=== PATIENT | female | born 1990 | race Caucasian/White ===

== ENCOUNTER 2024-06-03 20:33 | Emergency (ER) | payer BC, SELFPAY ==
[2024-06-03 20:38] VITALS: BP 119/78
[2024-06-03 21:02] LABS: % Basophils 0.7 % (0-2); % Eosinophils 2.9 % (0-6); % Immature Granulocytes 0.3 % (0-0.5); % Lymphocytes 23.2 % (20.5-51.1); % Monocytes 10.8 % (1.7-9.3); % Neutrophils 62.1 % (42.2-75.2); Absolute Basophils 0.1 10^3/uL (0-0.2); Absolute Eosinophils 0.3 10^3/uL (0-0.7); Absolute Lymphocytes 2.1 10^3/uL (1.2-3.4); Absolute Neutrophils 5.7 10^3/uL (1.4-6.5); Hematocrit 33.7 % (37.0-47.0); Hemoglobin 11.4 g/dL (12.0-16.0); Mean Corp Hgb Conc. 33.8 g/dL (33.0-37.0); Mean Corpuscular Hgb 28.7 pg (27.0-31.0); Mean Corpuscular Volume 84.9 fL (81.0-99.0); Mean Platelet Volume 11.4 fL (7.4-10.4); Nucleated Red Blood Cells % 0 %; Platelet Count 245 10^3/uL (130-400); Red Blood Cell Count 3.97 10^6/uL (4.20-5.40); Red Cell Dist. Width 14.2 % (11.5-14.5); Urine Albumin Negative (Neg - Trace); Urine Bilirubin Negative (Negative); Urine Character Very Cloudy (Clear); Urine Color Yellow; Urine Glucose Negative (Negative); Urine Ketone Negative (Negative); Urine Leukocyte Negative (Negative); Urine Nitrite Negative (Negative); Urine Occult Blood Negative (Negative); Urine Urobilinogen Negative (Neg - 1+); White Blood Cell Count 9.2 10^3/uL (4.8-10.8)
[2024-06-03] MEDS: ZOFRAN 4 MG IV (21:31)
[2024-06-03] MEDS: DILAUDID 0.5 MG IV (21:32)
--- NOTE | 2024-06-03 21:33 | ED.GENMED ---
History of Present Illness
General
Chief Complaint: Abdominal Pain
Source: patient
Exam Limitations: none
Time Seen by Provider: 06/03/24 21:08
History of Present Illness
History of Present Illness:
This is a 33 year old female that comes in with c/o right upper abd pain. States that she had some pain yesterday and then she started to feel better. States that she decided to eat dinner and then the pain came back and is now going around to the
back. States that she is nauseated and vomiting. States that she also felt dizzy. States that she is getting flushed with the pain. Denies any fever, chest pain, SOB, diarrhea, headache, urinary burning.
Past History
Past History
ED Past Medical History: Cancer (Non Hodgkin's Lymphoma), GERD and Other (endometriosis)
ED Past Surgical History: and Gynecological (Exp lap's)
Social History
Tobacco: Non-smoker
Alcohol: Occasional
Personal:
Living: with family
Review of Systems
Review of Systems
All Other Systems: ROS reviewed and negative except as documented in HPI and ROS
Constitutional: Reports chills and other (Flushed); Denies fever
EENT: Reports no symptoms
Respiratory: Reports no symptoms; Denies cough or trouble breathing
Cardiac: Reports no symptoms; Denies chest pain
ABD/GI: Reports abdominal pain, nausea and vomiting; Denies diarrhea
: Reports no symptoms; Denies dysuria, frequency or urgency
Musculoskeletal: Reports no symptoms
Skin: Reports no symptoms
Neurological: Reports dizzy; Denies headache
Psychiatric: Reports no symptoms
Phy Exam
General Physical Exam
General Presentation: mild distress
General age: appears stated age
General Skin: warm and dry
General Habitus: normal
General Mental: alert
General Hydration: appears well hydrated
ENT Exam
ENT Exam: TM's normal, pharynx normal and neck supple
Eye Exam
Eye Exam: EOMI
Cardiovascular Exam
Cardiovascular Exam: regular rate/rhythm, no edema, no murmur and normal peripheral pulses
Pulmonary Exam
Pulmonary Exam: lungs clear, no respiratory distress, no rales, chest non tender, no crackles, no rhonchi, no wheezing and no cough
Gastrointestinal Exam
Gastrointestinal Exam: normal bowel sounds, soft, no organomegaly, no pulsatile mass, non distended and tender (Right upper abd tenderness with palpation)
Musculoskeletal Exam
Musculoskeletal Exam: full ROM and no edema
Skin Exam
Skin Exam: normal color, warm/dry, no rash and no petechia
Psychiatric Exam
Psychiatric Exam: normal mood/affect
Course
Orders/Labs/Results
Orders:
Orders
06/03/24 20:43
IV Insert/Care/Rem.- Treatment PRN
06/03/24 20:55
Complete Blood Count/With Diff Urgent
Urinalysis Reflex To Culture Urgent
Date Specimen was Collected: 06/03/24
Time Specimen was Collected: 20:43
06/03/24 21:24
HYDROmorphone [Dilaudid] 0.5 mg IV NOW STA
Ondansetron Injectable [Zofran] 4 mg IV NOW STA
US Abdomen Complete/Upper Urgent
Comment:
Reason For Exam: Upper abd pain
06/03/24 21:36
Comprehensive Metabolic Panel Urgent
Lipase Urgent
06/03/24 21:56
HYDROmorphone [Dilaudid] 1 mg .ROUTE .STK-MED ONE
06/03/24 21:57
HYDROmorphone [Dilaudid] 1 mg IV NOW STA
Abnormal Lab Results
06/03/24 06/03/24
20:55 21:36
RBC 3.97 L 10^6/uL
(4.20-5.40)
Hgb 11.4 L g/dL
(12.0-16.0)
Hct 33.7 L %
(37.0-47.0)
MPV 11.4 H fL
(7.4-10.4)
Absolute Monos (auto) 1.0 H 10^3/uL
(0.1-0.6)
Monocytes % 10.8 H %
(1.7-9.3)
Glucose 106 H mg/dl
(70-99)
06/03/24 20:55
06/03/24 21:36
H/H sightly low. glucose nonfasting. Urine negative for infection or blood,
Vital Signs
Initial and Last Documented VS:
Initial Vital Signs
Temp Pulse Resp BP Pulse Ox
98.7 F 65 20 119/78 100
06/03/24 20:38 06/03/24 20:38 06/03/24 20:38 06/03/24 20:38 06/03/24 20:38
Last Documented Vital Signs
Temp Pulse Resp BP Pulse Ox
98.3 F 77 20 106/67 98
06/03/24 23:29 06/03/24 23:29 06/03/24 20:38 06/03/24 23:29 06/03/24 23:29
MDM/Problems Addressed
Differential Diagnosis Includes:
Cholecystitis Cholelithiasis, renal calculus
MDM/Problems Addressed:
This is a 33 year old female that comes in with c/o RUQ pain. States that this started yesterday and then she felt better. Then she ate dinner tonight and the pain is back. Now it is wrapping around to her back.
Will check labs medicate for pain and US.
Back into see patient. Explained that she has gallstones but there is no gallbladder wall thickening or ductal dilation. Patient states that she is feeling better. Will have patient follow up with the family doctor. Tylenol or Ibuprofen for pain.
Stay on a low fat diet. Return with any concerns
Chronic conditions affecting care: Cancer (Non Hodgkin's Lymphoma )
Acute Exacerbation and/or Progression of Chronic Illness:
NA
*Radiology
Radiology exam reviewed: radiology read reviewed (US-Cholelithiasis without sonographic evidence for acute cholecystitis. )
*Pulse Oximetry
Patient hypoxic: no
*EKG
Interpreted by ED Provider?: NA
Rate: EKG- N/A
*Tracer Clerk Interpretation
Rate: Tracer Clerk- N/A
*Critical Care Note
Total Time (30-74mins, 75-104mins- exclusive of procedures): Not Applicable
ED Attending Note
-
Portions of this chart may have been created with voice recognition software.� Occasional wrong word or��sound alike� substitutions may have occurred due to the inherent limitations of voice recognition software.
Discharge Plan
Departure
Patient Disposition: Home (Routine Discharge)
Date of Disposition: 06/03/24
Time of Disposition: 23:45
Patient with high blood pressure during this ER visit?: No
Condition: Good
Covid-19: Not Applicable
Discharge Problem:
Cholelithiasis
Instructions: Gallstones (DC)
Referrals:
UNKNOWN - PT DOES,NOT KNOW [Family Provider] -
Activity Restrictions/Additional Instructions:
As discussed, your blood work is normal and your urine is negative for infection. Your Ultrasound shows that you have gallstones but there is no gallbladder wall thickening. Please follow up with the family doctor. Please stay on a low fat diet. IF
YOU HAVE INCREASED PAIN, FEVER, OR YOU HAVE ANY OTHER CONCERNS PLEASE RETURN TO THE EMERGENCY ROOM.
Interventions
Interventions:
*Risk Screen - Suicide Last Done: 06/03/24 20:38
*General Assessment Last Done: 06/03/24 20:38
*Neglect/Abuse Screening Last Done: 06/03/24 20:38
ED- Fall Risk Assessment Last Done: 06/03/24 20:38
*ED COVID-19 Vaccine History Last Done: 06/03/24 20:38
IP-Jjqlgd-Ujxoafkhuo Assessment Last Done: 06/03/24 21:40
Discharge Date and Time
Print Language: MARTINIQUAIS
[2024-06-03 21:40] VITALS: BP 112/71
[2024-06-03] MEDS: DILAUDID 1 MG IV (21:58)
[2024-06-03 22:02] LABS: ALT (SGPT) 19 U/L (0-35); AST (SGOT) 22 U/L (14-36); Albumin 4.4 g/dl (3.5-5.0); Alkaline Phosphatase 72 U/L (38-126); Blood Urea Nitrogen 13 mg/dl (7-17); Calcium 9.8 mg/dl (8.4-10.2); Carbon Dioxide 27 mmol/L (22-30); Chloride 102 mmol/L (98-107); Glucose 106 mg/dl (70-99); Potassium 4.1 mmol/L (3.5-5.1); Sodium 139 mmol/L (135-145); Total Bilirubin 0.4 mg/dl (0.2-1.3); Total Protein 7.3 g/dl (6.3-8.2); eGFR > 60.00
[2024-06-03 22:04] LABS: Lipase 89 U/L (23-300)
[2024-06-03 23:29] VITALS: BP 106/67
== END 2024-06-04 00:01 | disposition home or self-care (01) ==
LOC: EMR 20:33
PROVIDERS: Emergency Medicine; EMERGENCY PHYSICIAN Emergency Medicine
DX: K80.20 Calculus of gallbladder without cholecystitis without obstruction (principal); R42 Dizziness and giddiness; R11.2 Nausea with vomiting, unspecified; R23.2 Flushing; K21.9 Gastro-esophageal reflux disease without esophagitis; C85.90 Non-Hodgkin lymphoma, unspecified, unspecified site
CPT/HCPCS: 99284; 96374; 96375; 76700; 80053; 81003; 83690; 85025